=== PATIENT | male | born 1955 | race American Indian/Alaskan Native ===

== ENCOUNTER 2018-01-07 10:39 | Day surgery (SDC) | payer OTHER ==
[~2018-01-07 10:39] MED LIST: NACL 0.9% 1000 ML 1,000 ML IV SCH
--- NOTE | 2018-01-07 14:45 | Anesthesia Day of Surgery ---
Anesthesia Day of Surgery - Day of Surgery Patient Examined: Yes Patient H&P Reviewed: Yes Patient is NPO: Yes Beta Blockers: No
--- NOTE | 2018-01-07 14:46 | Anesthesia Consultation ---
Anesthesia Consult and Med Hx - Airway Anesthetic Teeth Evaluation: Good ROM Head & Neck: Adequate Mental/Hyoid Distance: Adequate Mallampati Class: Class III Intubation Access Assessment: Probably Good - Pulmonary Exam CTA: Yes - Cardiac Exam Cardiac Exam: No Murmur - Pre-Operative Health Status ASA Pre-Surgery Classification: ASA3 Proposed Anesthetic Plan: MAC - Pulmonary Hx Smoking: Yes (VAPOR USE) - Cardiovascular System Hx Hypertension: Yes
[2018-01-07] MEDS ORDERED: DIPRIVAN 10 MG/ML IV ONE ×2 (15:59)
[2018-01-07] MEDS ORDERED: XYLOCAINE 2% INFILTRATI ONE (16:00)
[2018-01-07] MEDS ORDERED: GI SPOT IJ ONE ×2 (16:15→16:17)
[2018-01-07 17:00] VITALS: BP 141/72
--- NOTE | 2018-01-07 17:45 | Operative Report ---
Operative Report Operative Report: Date of procedure: 01/07/2018 Procedure: Colonoscopy with Multiple Hot Biopsy Polypectomies of sigmoid colon polyps. Also, cold biopsies of cecal mass, submucosal injection with tattoo of cecal mass. Attending physician: Jamil Bah MD [employer]: Jamil Bah MD Indication: Patient is a 62-year-old female who presents for screening colonoscopy. Patient has a past history of colon polyps. Last colonoscopy was 10 years ago. This colonoscopy serves to evaluate patient so that treatment may be directed based on the findings. Consent: Informed consent was obtained after advising the patient and family regarding nature of this procedure, its indications, potential benefits as well as possible complications including but not limited to bleeding perforation and adverse reaction to medication, infection as well as other cardiopulmonary complications. An informed written and verbal consent was then obtained after due opportunity was provided for questions and answers. Monitoring: Patient was monitored continuously with pulse oximetry and electrocardiographic recordings as well as blood pressure recordings. Vital signs remained stable throughout this procedure with no untoward events. Preoperative assessment: Patient was assessed immediately prior to this procedure for capacity to tolerate monitored anesthesia care and moderate sedation as well as general anesthesia. Patient's ASA classification is 2, Mallampati class is 2, Hyomental distance is 3. Instrument: [employer] video colonoscope Medications: Propofol given intravenously in divided doses. For details please refer to anesthesia records. Description of procedure: Patient was placed in the left lateral decubitus position after achieving sedation, a digital rectal examination was performed following which the colonoscope was introduced into the anal verge and advanced to the cecum which was identified by the cecal valve, the appendiceal orifice, as well as by the cecal strap and direct transillumination. The colonoscope was subsequently withdrawn with careful inspection of all mucosal surfaces. Patient tolerated this procedure well and was subsequently taken to the recovery room. The following findings were noted. Findings: The preparation was poor with substantial retained stool in the ascending colon cecum and in the transverse and descending colon. Patient had a broad base cecal mass that was very friable and bled easily on contact. This was semicircumferential in distribution. Several biopsies were obtained for histopathology. Patient had multiple sigmoid colon polyps. In all they were about 7 polyps that were all removed by hot biopsy polypectomy. The rest of the colon to the cecum was normal except for poor preparation and substantial retained stool. On the retroflex view at the anal verge, patient had internal hemorrhoids. Impression: Cecal mass, status post biopsies and submucosal injection with tattoo of mass. Multiple sigmoid colon polyps status post hot biopsy polypectomy. Retained stool. Internal hemorrhoids. Plan: Follow pathology report. High-fiber diet. Patient needs resection of the cecum given the mass lesion in the cecum. Prior to surgery however patient may need a repeat colonoscopy given the poor colonoscopic preparation.
--- NOTE | 2018-01-07 17:46 | Discharge Summary ---
Short Stay Discharge Plan Activity: advance as tolerated Weight Bearing Status: Weight Bear as Tolerated Diet: regular Additional Instructions: Post Sedation D/C Instructions When you return home you may resume your regular diet unless otherwise directed. -Go directly home from the hospital and rest quietly. You may resume normal activities tomorrow. -Do NOT drive, return to work, operate any machinery or make any important personal or business decisions today. -Do NOT drink any alcohol or take nerve or sleeping drugs. They add to the effects of the medicine still present in your body. Follow up with Dr. Bah in 2 weeks to obtain pathology results and treatment plan. High Fiber Diet Follow up with: AFSHAN RAMIREZ MD [Primary Care Provider] - 7 Days
== END 2018-01-07 10:40 | disposition home or self-care (01) ==
LOC: GIO 10:39
PROVIDERS: ATTEND Internal Medicine Gastroenterology
DX: Z12.11 Encounter for screening for malignant neoplasm of colon (principal); D12.0 Benign neoplasm of cecum; K63.5 Polyp of colon; I10 Essential (primary) hypertension; F17.290 Nicotine dependence, other tobacco product, uncomplicated; Z86.010 Personal history of colon polyps; Z98.890 Other specified postprocedural states; Z79.899 Other long term (current) drug therapy
CPT/HCPCS: 45380; 45381; 45384; 88305; J2704